=== PATIENT | male | born 1965 | race Caucasian/White ===

== ENCOUNTER 2019-11-01 08:32 | Outpatient (CLI) | payer OTHER, SELFPAY ==
--- NOTE | 2019-11-01 08:39 | XR_ITS ---
WS: [id number] KNEE RIGHT TECHNIQUE: 3 views of the right knee CLINICAL INFORMATION: RT KNEE PAIN COMPARISON: None. FINDINGS: Right knee is normal in appearance. No evidence of acute fracture dislocation. Small effusion. Patell a is normal. XR/XR knee RT 3V* [id number] IMPRESSION: Small suprapatellar effusion. No acute fractures.
== END 2019-11-01 08:33 | disposition home or self-care (01) ==
PROVIDERS: Family Provider Family Medicine; PCP Family Medicine; Visit Provider Family Medicine
DX: M25.461 Effusion, right knee (principal); M25.561 Pain in right knee
CPT/HCPCS: 73562

== ENCOUNTER 2019-11-19 08:56 | Outpatient (CLI) | payer OTHER, SELFPAY ==
--- NOTE | 2019-11-19 09:09 | MR_ITS ---
WS: [id number] MRI RIGHT KNEE HISTORY: KNEE PAIN, RIGHT COMPARISON: RIGHT knee radiograph 11/01/2019 Anterior cruciate ligament: Intact. Posterior cruciate ligament: Intact. Medial collateral ligament: Intact. Posterior lateral corner structures: Intact. Medial menisci: Abnormal shape and contour and signal in the posterior horn towards the meniscal root . Increased signal along the superior articular surface. Seen best on the axial imaging is a tear tow ards the meniscal root. Anterior horn is normal. Lateral meniscus: Intact. Normal signal, size and shape. Extensor mechanism: Distal quadriceps tendon and patellar tendons are intact. Fluid and soft tissue: Moderate-sized suprapatellar joint effusion. No Nur's cyst. Osseous and articular structures: Patellofemoral compartment: Normal. Medial compartment: Very mild fissuring and thinning of the cartilage in the medial compartment. Larg est fissures and defects involving the femoral condyle towards the intercondylar notch where the meni scal tear is evident. Mild narrowing of the joint space. Lateral compartment: MR/MR knee RT wo con* [id number] IMPRESSION: 1. Irregular tear involving the posterior horn medial meniscus towards the men iscal root. 2. Mild joint space narrowing medial compartment with fissuring and thinning o f the cartilage. 3. Moderate-sized suprapatellar joint effusion.
== END 2019-11-19 08:57 | disposition home or self-care (01) ==
LOC: RADWPI 09:03
PROVIDERS: Family Provider Family Medicine; PCP Family Medicine; Visit Provider Family Medicine
DX: M25.561 Pain in right knee (principal); M25.461 Effusion, right knee
CPT/HCPCS: 73721

== ENCOUNTER → 2020-09-01 12:49 | Outpatient (BNVA) | payer OTHER, SELFPAY | PROVIDERS: Family Provider Family Medicine; PCP Family Medicine; Visit Provider Nurse Practitioner Family | DX: Z20.828 Contact with and (suspected) exposure to other viral communicable diseases (principal) | CPT/HCPCS: 87635 ==

== ENCOUNTER 2020-09-05 08:00 | Outpatient (CLI) | payer OTHER, SELFPAY ==
[2020-09-05 08:06] VITALS: BP 150/98; PULSE 60; RESP 17; TEMP 36.6; O2SAT 98; BMI 39.5
--- NOTE | 2020-09-05 08:17 | AMB.MCA ---
Patient Information Referred by: John Symptom onset date: 08/27/20 COVID 19 common symptoms: positive cough, non-productive cough, fatigue and body aches COVID 19 other sytmptoms: negative chest pressure, chest pain, pleuritic pain, requiring oxygen or requiring more oxygen Severity: mild OZH COVID test results: SARS-CoV-2 RNA (RT-PCR) Detected (NOT DETECTED) A 09/01/20 12:49 09/01/20 Criteria/Plan Inclusion/Exclusion Criteria weight >/= 40kg, + direct test </= 10 days ago and symptom onset </= 10 days ago BMI >/= 35 not requiring hospitalization Patient education patient/caregiver received/reviewed fact sheet, Emergency Use Authorization/unapproved drug status discussed with patient/caregiver, alternatives to this treatment discussed with patient/caregiver, risks and benefits of medication reviewed with patient/caregiver, patient/caregiver given opportunity for questions, which were answered and patient/caregiver consents to receiving Monoclonal Antibody Treatment Plan for treatment Meets criteria for Monoclonal Antibody infusion Ordering Monoclonal Antibody infusion for today
[2020-09-05 08:24] VITALS: BP 158/101; PULSE 78; RESP 19; TEMP 36.6; O2SAT 98
[2020-09-05 09:07] VITALS: BP 124/86; PULSE 67; RESP 18; TEMP 36.6; O2SAT 96
[2020-09-05 09:19] VITALS: BP 130/85; PULSE 67; RESP 17; TEMP 36.6; O2SAT 97
[2020-09-05 10:39] VITALS: BP 150/98; PULSE 60; RESP 17; TEMP 36.6; O2SAT 98
--- NOTE | 2020-09-05 10:50 | PC.NURSE ---
Discharge note Patient monitored post infusion with no side effects noted. IV removed with catheter intact. Pressure dressing applied. Patient left with nurse tech to private vehicle.
--- NOTE | 2020-09-11 15:13 | DCPLANNER ---
Addendum entered by Licha Mccauley 09/16/20 15:18: commercial construction project manager called to check on patient after receiving the BAM infusion. Patient stated that he was doing better, still not at 100%, he stills gets winded very easy, he is getting around good, does not have a headache. Patient has not been admitted to the hospital. Original Note: commercial construction project manager had message that patient received the BAM infusion. commercial construction project manager called to check on patient after receiving the infusion. Patient stated that he is feeling a lot better. Before the infusion he had a lot of sinus pressure, headache, lost of taste and smell, no fever, burning in his chest. After the infusion he states that he is feeling a lot better, no headache, shortness of breath is better, still gets headaches but nothing like before,still has sinus pressure. Patient stated that he does not have his sense of taste or smell.
== END 2020-09-05 10:45 | disposition home or self-care (01) ==
PROVIDERS: Family Provider Family Medicine; PCP Family Medicine; Visit Provider Nurse Practitioner Family
DX: U07.1 COVID-19 (principal)
CPT/HCPCS: 96365; J7050

== ENCOUNTER → 2021-12-02 09:44 | Outpatient (BNVA) | payer MEDICAID, SELFPAY | PROVIDERS: Family Provider Family Medicine; PCP Family Medicine; Referring Provider Family Medicine; Visit Provider Surgery | DX: Z86.010 Personal history of colon polyps (principal); F17.210 Nicotine dependence, cigarettes, uncomplicated | CPT/HCPCS: 99203 ==

== ENCOUNTER 2022-01-28 09:10 | Day surgery (SDC) | payer MEDICAID, SELFPAY ==
[2022-01-26 09:50] VITALS: BMI 38.0
[2022-01-28 09:30] VITALS: BP 136/88; PULSE 50; RESP 18; TEMP 36.2; O2SAT 97
[2022-01-28] MEDS: sodium chloride 0.9% 1,000 ML 30 ML IV (09:38)
--- NOTE | 2022-01-28 10:53 | W.PM.OPSFHP ---
Same Day Surgery H&P Indication for Procedure/HPI DATE OF PROCEDURE: January 28, 2022 CHIEF COMPLAINT/INDICATIONFOR SURGICAL PROCEDURE: Colon polyps PREOP DIAGNOSIS: History of colon polyps PLANNED PROCEDURE: Operation Date: 01/28/22 10:30 Proposed Procedures p Colonoscopy 11032/z86.010(Not Applicable) - Gustavo Mckenzie MD 12/02/2021 This is a pleasant 56 years old gentleman with history of colon polyps before 5 years, patient reports any nausea vomiting fevers or chills or bleeding per rectum, is referred to my practice for surveillance colonoscopy and also denies history of colon cancer. 01/28/2022 Patient comes today for surveillance colonoscopy ROS All systems have been reviewed negative except as for the above or per problem list. Medications/Allergies* Home Medications Medication Instructions Recorded Confirmed Type amlodipine 10 mg tablet 10 mg PO DAILY 09/01/20 01/26/22 History losartan 25 mg tablet 25 mg PO DAILY 09/01/20 01/26/22 History omeprazole 20 mg capsule,delayed 20 mg PO DAILY 12/02/21 01/26/22 History release Allergies/Adverse Reactions Allergy/AdvReac Type Severity Reaction Status Date / Time No Known Allergies Allergy Verified 01/28/22 10:53 Current Medications: Generic Name Dose Route Start Last Admin Trade Name Freq PRN Reason Stop Dose Admin Sodium Chloride 1,000 mls @ 30 mls/hr 01/28/22 09:30 01/28/22 09:38 Sodium Chloride 0.9% IV 01/29/22 09:29 30 mls/hr .Q24H ARGELIA Administration Pertinent History/Comorbid Conditions* Medical History (Updated 12/04/21 @ 17:29 by Gustavo Mckenzie MD) Accelerated essential hypertension Social History Smoking and tobacco status: current some day smoker Pertinent Exam Findings alert, oriented x 3, regular rate & rhythm and procedure specific exam findings (Abdominal examination nontender nondistended soft) Recommendations Surgery/Procedure today (Surveillance colonoscopy) Coding Level of Care Code Acute Simulation Developer for Lainey Baptiste
--- NOTE | 2022-01-28 11:00 | ANES.PREANE2 ---
Pre-Anesthetic Assessment Height/Weight: Height 1.73 m Weight 113.398 kg Temp Pulse Resp BP Pulse Ox 97.2 F L 50 L 18 136/88 97 01/28/22 09:30 01/28/22 09:30 01/28/22 09:30 01/28/22 09:30 01/28/22 09:30 Preop Diagnosis: History of colon polyps Operation Date: 01/28/22 10:30 Proposed Procedures p Colonoscopy 77364/z86.010(Not Applicable) - Gustavo Mckenzie MD Familial anesthetic complications: None Was Beta Dante taken within 24 hours: N/A Was Clonidine taken within 24 hours: N/A Last intake: Intake Last Liquid Date 01/27/22 Last Liquid Time 21:00 Last Solid Date 01/26/22 Last Solid Time 20:30 Social Tobacco and No alcohol Exam alert, oriented x 3 and regular rate & rhythm Airway Submandibular: within normal limits Cervical ROM: within normal limits Mallampati: Class II Dentition: full Pulmonary Chronic Obstructive Pulmonary Disease CV/HEM Hypertension GI Gastroesophageal Reflux Disease Metabolic Morbid Obesity Anesthetic Plan ASA status: 2 Anesthesia: MAC Medications/Allergies Home Medications Medication Instructions Recorded Confirmed Last Taken Type amlodipine 10 mg tablet 10 mg PO DAILY 09/01/20 01/26/22 01/26/22 History losartan 25 mg tablet 25 mg PO DAILY 09/01/20 01/26/22 01/26/22 History omeprazole 20 mg capsule,delayed 20 mg PO DAILY 12/02/21 01/26/22 01/26/22 History release Allergies Allergy/AdvReac Type Severity Reaction Status Date / Time No Known Allergies Allergy Verified 01/28/22 10:53 Current Medications Generic Name Dose Route Start Last Admin Trade Name Freq PRN Reason Stop Dose Admin Sodium Chloride 1,000 mls @ 30 mls/hr 01/28/22 09:30 01/28/22 09:38 Sodium Chloride 0.9% IV 01/29/22 09:29 30 mls/hr .Q24H ARGELIA Administration PFSH Anesthesia Medical History Accelerated essential hypertension Social History Smoking and tobacco status: current some day smoker Data Anesthesia Cardiac Studies: No Data to Display
[2022-01-28 11:18] VITALS: BP 134/91; PULSE 68; RESP 16; TEMP 36.1; O2SAT 94
[2022-01-28 11:31] VITALS: BP 136/89; PULSE 63; RESP 17; O2SAT 95
[2022-01-28 11:40] VITALS: BP 122/85; PULSE 53; RESP 16; O2SAT 95
--- NOTE | 2022-01-28 12:16 | ANE.PACU2 ---
Inpatient post-anesthesia follow up: Airway intact: Yes Vital signs: Temperature 97 F Pulse Rate 53 Respiratory Rate 16 Blood Pressure 122/85 Pulse Oximetry 95 Oxygen Delivery Me thod Room Air Oxygen Flow Rate 4 Fraction of Inspir ed Oxygen Hydration adequate: Yes Nausea and vomiting: No Pain level: 1 Mental status: Baseline
== END 2022-01-28 11:58 | disposition home or self-care (01) ==
PROVIDERS: Family Provider Family Medicine; PCP Family Medicine; Visit Provider Surgery
PROC: 0DJD8ZZ Inspection of Lower Intestinal Tract, Via Natural or Artificial Opening Endoscopic (ICD-10-PCS; CPT 45378; principal; 2022-01-28 10:30)
DX: Z12.11 Encounter for screening for malignant neoplasm of colon (principal); Z86.010 Personal history of colon polyps; F17.200 Nicotine dependence, unspecified, uncomplicated; J44.9 Chronic obstructive pulmonary disease, unspecified; I10 Essential (primary) hypertension; K21.9 Gastro-esophageal reflux disease without esophagitis; E66.01 Morbid (severe) obesity due to excess calories; Z68.38 Body mass index [BMI] 38.0-38.9, adult
CPT/HCPCS: 45378; J2704; J7030

== ENCOUNTER → 2022-02-17 09:25 | Outpatient (BNVA) | payer MEDICAID, SELFPAY | PROVIDERS: Family Provider Family Medicine; PCP Family Medicine; Visit Provider Surgery | DX: Z09 Encounter for follow-up examination after completed treatment for conditions other than malignant neoplasm (principal); K57.31 Diverticulosis of large intestine without perforation or abscess with bleeding; K42.9 Umbilical hernia without obstruction or gangrene | CPT/HCPCS: 99213 ==

== ENCOUNTER → 2023-02-04 09:05 | Outpatient (BNVA) | payer MEDICAID, SELFPAY | PROVIDERS: Family Provider Family Medicine; PCP Family Medicine; Visit Provider Clinical Nurse Specialist Adult Health | DX: K57.32 Diverticulitis of large intestine without perforation or abscess without bleeding (principal) | CPT/HCPCS: 80053; 85025; 85651; 86140 ==

== ENCOUNTER 2023-02-26 14:32 | Emergency (ER) | payer MEDICAID, SELFPAY ==
[2023-02-26 14:46] VITALS: BP 168/112; PULSE 89; RESP 16; TEMP 36.7; O2SAT 95; BMI 36.5
--- NOTE | 2023-02-26 14:48 | W.ED.SOB ---
HPI - SOB/Dyspnea General: Chief Complaint: Shortness of Breath/Dyspnea Stated Complaint: cough 2xweeks Time Seen by Provider: 02/26/23 14:46 Source: patient Mode of arrival: ambulatory History of Present Illness: HPI Narrative: 57-year-old male presents emergency room with complaint of persistent cough for the last 2 weeks cough nonproductive. No vomiting no diarrhea no orthopnea no chest pain. He has had some nausea with the coughing fits. He recently finished Zithromax did not seem to help. No history of any arrhythmias or congestive heart failure. Patient is a former smoker. MD elicited complaint: cough Onset (ago): week(s) (2) Timing: constant Severity: mild Exacerbating factors: nothing Relieving factors: nothing Associated symptoms: Deny abdominal pain, chest congestion, chest pain, cough, diaphoresis, dizziness, extremity pain, fever(s), hemoptysis, lightheadedness, myalgias, nausea, orthopnea, palpitations, paresthesias, polydipsia, polyuria, rash, sense of impending doom, syncope or vomiting Treatment prior to arrival: none Review of Systems Const: Denies: fever(s) or diaphoresis ENMT: Denies: throat pain, ear or mastoid pain, nasal discharge or nasal congestion Card: Denies: chest pain, palpitations, lightheadedness, syncope or orthopnea Resp: Reports: dyspnea, non-productive cough and wheezing; Denies: hemoptysis or chest congestion GI: Denies: abdominal pain, nausea or vomiting : Denies: flank pain, dysuria, urinary frequency or urinary urgency Musc: Denies: extremity pain Skin/Breast: Denies: rash or pruritus Neuro: Denies: dizziness Endo: Denies: polyuria or polydipsia PFS ED PFSH: Medical History Accelerated essential hypertension History of diverticulitis Surgical History History of colonoscopy History of hernia repair Family History Other CAD (coronary artery disease) Cancer Diabetes Hypertension Social History Smoking and tobacco status: current some day smoker Physical Exam Const: GENERAL APPEARANCE: cooperative and comfortable ORIENTATION/CONSCIOUSNESS: Yes awake, Yes oriented to person, Yes oriented to place and Yes oriented to time HENMT: COMMON NORMALS: normocephalic, atraumatic and hearing grossly normal bilaterally HEAD & SCALP: normocephalic and atraumatic Resp: AUSCULTATION: rhonchi and wheezes Cardio: COMMON NORMALS: regular rate, regular rhythm and No murmurs present (Cardio) RATE: regular rate RHYTHM: regular rhythm GI: COMMON NORMALS: Soft to palpation and No hepatosplenomegaly present AUSCULTATION: Yes normoactive bowel sounds PALPATION: Yes Soft to palpation, No Tenderness to palpation present (GI), No Guarding due to palpation present (GI) and Yes No hepatosplenomegaly present Extremity: COMMON NORMALS: normal to inspection, capillary refill normal, no clubbing, cyanosis or edema, no calf tenderness and no pedal edema Neuro: SENSORIUM/ORIENTATION: Yes oriented to person, Yes oriented to place and Yes oriented to time Skin: COMMON NORMALS: no rashes or lesions noted GENERAL SKIN EXAM: no rashes or lesions noted Course Vital Signs: Vital signs: Vital Signs Temperature 98.0 F 02/26/23 14:46 Pulse Rate 85 02/26/23 16:43 Respiratory Rate 17 02/26/23 15:25 Blood Pressure 129/68 02/26/23 16:43 Pulse Oximetry 97 02/26/23 16:43 Oxygen Delivery Me thod Room Air 02/26/23 16:00 MDM - SOB/Dyspnea Medical Decision Making COPD with acute exacerbation chest x-ray is clear started on a steroid taper Symbicort continue albuterol as needed follow-up with his primary care doctor next week avoid tobacco smoke exposure and other allergen exposure as well as heat and humidity. Return if is further problems. Medical Records I reviewed the patient's medical records. Lab Data I reviewed the patient's lab results. 02/26/23 15:00 Labs/Radiology: Radiology Impressions Chest X-Ray 02/26/23 14:50 IMPRESSION: No acute findings. Laboratory Results WBC 8.8 10^3/uL (4.0-10.0) 02/26/23 15:00 RBC 5.57 10^6/uL (4.1-5.3) H 02/26/23 15:00 Hgb 15.5 g/dL (11.7-16.6) 02/26/23 15:00 Hct 46.7 % (42.0-52.0) 02/26/23 15:00 MCV 83.8 fl (80-94) 02/26/23 15:00 MCH 27.8 pg (28.0-34.0) L 02/26/23 15:00 MCHC 33.2 g/dL (30.0-36.0) 02/26/23 15:00 RDW 13.3 % (12.1-15.1) 02/26/23 15:00 Plt Count 273 10^3/cmm (130-400) 02/26/23 15:00 MPV 9.4 fL (7.4-10.4) 02/26/23 15:00 Neut % (Auto) 50.9 % 02/26/23 15:00 Lymph % (Auto) 25.8 % 02/26/23 15:00 [place] % (Auto) 7.5 % 02/26/23 15:00 Eos % (Auto) 13.5 % 02/26/23 15:00 Baso % (Auto) 1.8 % 02/26/23 15:00 Neut # (Auto) 4.49 10^3/uL (1.8-7.7) 02/26/23 15:00 Lymph # (Auto) 2.3 10^3/uL (0.8-4.8) 02/26/23 15:00 [place] # (Auto) 0.7 10^3/uL (0.2-0.9) 02/26/23 15:00 Eos # (Auto) 1.2 10^3/uL (0.0-0.8) H 02/26/23 15:00 Baso # (Auto) 0.2 10^3/uL (0.0-0.1) H 02/26/23 15:00 Nucleated RBC % (auto) 0 % 02/26/23 15:00 Nucleated RBCs # 0.0 /100WBC 02/26/23 15:00 Discharge Plan Discharge Patient Disposition: Home Clinical Impression: Acute exacerbation of chronic obstructive airways disease Condition: Stable Prescriptions: New prednisone 20 mg tablet 20 mg PO TID Qty: 15 0RF Rx Instructions: 1 p.o. 3 times daily x3 days, 1 p.o. twice daily x2 days, 1 p.o. daily x2 days albuterol sulfate 90 mcg/actuation HFA aerosol inhaler 2 inh INHALATION Q4H PRN (Reason: shortness of breath or wheezing) Qty: 18 0RF Symbicort 80-4.5 mcg/actuation HFA aerosol inhaler 2 puff inhalation BID Qty: 10.2 0RF No Action omeprazole 20 mg capsule,delayed release(DR/EC) 20 mg PO DAILY azithromycin 250 mg tablet See Rx Instructions PO .COMPLEX Qty: 6 0RF Rx Instructions: For 250 mg dose pack: take 500 mg today (day 1), then 250 mg for 4 days (days 2-5) PO benzonatate 100 mg capsule 100 mg PO TID PRN (Reason: cough) Qty: 45 0RF albuterol sulfate [ProAir HFA] 90 mcg/actuation HFA aerosol inhaler 2 puff inhalation Q6H PRN (Reason: shortness of breath or wheezing) Qty: 8.5 6RF amlodipine 10 mg tablet 10 mg PO DAILY Qty: 90 3RF losartan 50 mg tablet 50 mg PO DAILY Qty: 90 3RF Discharge Orders: Discharge ED (Routine); Ordered 02/26/23 Ordered By: Chalo Gonzalez Referrals: Luís eHrnandez MD [Primary Care Provider] - Patient Instructions: COPD (Chronic Obstructive Pulmonary Disease) (ED), Opioid Safety, Pain Management Activity Restrictions/Additional Instructions: Follow-up with your doctor within the next week Coding Level of Care Code ED [employer] for Lainey Baptiste
--- NOTE | 2023-02-26 14:50 | ECG_ITS ---
[facility] Test Date: 2023-02-26 Pat Name: Serafin Martinez Department: Room: Gender: Male Sole Stainer: : 1965 Requested By: Chalo Hoyos Order Number: [id number] Kristal MD: Noah Castrejon M.D. Measurements Intervals Adrian Rate: 79 P: 44 UT: 157 QRS: 19 QRSD: 96 T: 65 QT: 367 QTc: 421 Interpretive Statements SINUS RHYTHM INDETERMINATE AXIS No previous ECG available for comparison Electronically Signed On 02-26-2023 15:56:09 CDT by Noah Castrejon M.D. [email or web address]
--- NOTE | 2023-02-26 14:50 | XRR_ITS ---
PROCEDURE INFORMATION: Exam: XR Chest Exam date and time: 02/26/2023 2:58 PM Age: 57 years old Clinical indication: Cough and dyspnea; Additional info: Dyspnea/cough TECHNIQUE: Imaging protocol: Radiologic exam of the chest. Views: 1 view. COMPARISON: CT abdomen pelvis w con* [id number] 08/20/2016 9:15 PM FINDINGS: Lungs: Unremarkable. No consolidation. Pleural spaces: Unremarkable. No pleural effusion. No pneumothorax. Heart/Mediastinum: Unremarkable. No cardiomegaly. Bones/joints: Unremarkable. XR/XR chest 1V portable [id number] IMPRESSION: No acute findings.
[2023-02-26 15:14] LABS: Basophils # 0.2 10^3/uL (0.0-0.1); Basophils % 1.8 %; Eosinophils # 1.2 10^3/uL (0.0-0.8); Eosinophils % 13.5 %; Hematocrit 46.7 % (42.0-52.0); Hemoglobin 15.5 g/dL (11.7-16.6); Lymphocytes # 2.3 10^3/uL (0.8-4.8); Lymphocytes % 25.8 %; Mean Corpuscular HGB Conc 33.2 g/dL (30.0-36.0); Mean Corpuscular Hemoglobin 27.8 pg (28.0-34.0); Mean Corpuscular Volume 83.8 fl (80-94); Mean Platelet Volume 9.4 fL (7.4-10.4); Monocytes # 0.7 10^3/uL (0.2-0.9); Monocytes % 7.5 %; Neutrophils # 4.49 10^3/uL (1.8-7.7); Neutrophils % 50.9 %; Nucleated Red Blood Cells % 0 %; Platelet Count 273 10^3/cmm (130-400); Red Blood Count 5.57 10^6/uL (4.1-5.3); Red Cell Distribution Width 13.3 % (12.1-15.1); White Blood Count 8.8 10^3/uL (4.0-10.0)
[2023-02-26] MEDS: dexamethasone 10 mg/mL INJ IVP (15:15)
[2023-02-26 15:20] VITALS: BP 133/83; PULSE 77; O2SAT 94
[2023-02-26] MEDS: ipratropium-albuterol 3 mL Neb INHALATION (15:22)
[2023-02-26 15:25] VITALS: PULSE 81; RESP 17; O2SAT 94
[2023-02-26 16:00] VITALS: BP 122/65; PULSE 84; O2SAT 98
[2023-02-26 16:43] VITALS: BP 129/68; PULSE 85; O2SAT 97
== END 2023-02-26 16:44 | disposition home or self-care (01) ==
PROVIDERS: Emergency Provider Family Medicine; PCP Family Medicine
DX: J44.1 Chronic obstructive pulmonary disease with (acute) exacerbation (principal)
CPT/HCPCS: 36415; 71045; 85025; 93005; 94640; 96374; 99285; J1100

== ENCOUNTER → 2023-05-12 09:53 | Outpatient (BNVA) | payer MEDICAID, SELFPAY | PROVIDERS: PCP Family Medicine; Visit Provider Internal Medicine Pulmonary Disease | DX: J30.2 Other seasonal allergic rhinitis (principal); R06.02 Shortness of breath; Z87.891 Personal history of nicotine dependence | CPT/HCPCS: 82785; 86003 ==

== ENCOUNTER 2023-05-26 07:49 | Outpatient (CLI) | payer MEDICAID, SELFPAY ==
[2023-05-26] MEDS: albuterol 2.5 mg/3 mL Neb INHALATION (08:20)
[2023-05-26 15:12] VITALS: BP 126/75
== END 2023-05-26 07:50 | disposition home or self-care (01) ==
LOC: RT 07:50
PROVIDERS: PCP Family Medicine; Visit Provider Internal Medicine Pulmonary Disease
DX: R06.02 Shortness of breath (principal)
CPT/HCPCS: 82785; 86003; 94060; 94618; 94726; 94729; J7613

== ENCOUNTER 2023-06-02 10:44 | Outpatient (CLI) | payer MEDICAID, SELFPAY ==
--- NOTE | 2023-06-02 11:00 | CT_ITS ---
WS: [id number] LDCT LUNG CANCER SCREENING TECHNIQUE: Noncontrast CT of the chest with coronal and sagittal reformatted images. CLINICAL INFORMATION: Cancer Screen COMPARISON: None. DLP: 163.19 mGy.cm DIvol: Mean CTDIvol: 3.70 (mGy) All CT scans at [facility] use at least one of these dose optimization techniques: automat ed exposure control; mA and/or kV adjustment per patient size (includes targeted exams where dose is matched to clinical indication); or iterative reconstruction. FINDINGS: 5 mm noncalcified nodule along the fissure. Normal caliber thoracic aorta. No mediastinal or hilar lymphadenopathy. Calcified anterior mediastina l lymph nodes. No axillary lymphadenopathy. Adrenal glands are normal. Normal GE junction. Few calcified granulomas. IMPRESSION: CT/CT lung screening [id number] LUNG-RADS: 2-Benign Appearance or Behavior FOLLOW UP: 12 Month: Continue annual screening with LDCT
== END 2023-06-02 10:45 | disposition home or self-care (01) ==
PROVIDERS: PCP Family Medicine; Visit Provider Internal Medicine Pulmonary Disease
DX: Z87.891 Personal history of nicotine dependence (principal); Z12.2 Encounter for screening for malignant neoplasm of respiratory organs
CPT/HCPCS: 71271

== ENCOUNTER → 2024-04-09 15:38 | Outpatient (BNVA) | payer OTHER, SELFPAY | PROVIDERS: PCP Family Medicine; Visit Provider Family Medicine | DX: Z51.81 Encounter for therapeutic drug level monitoring (principal); Z13.220 Encounter for screening for lipoid disorders; R73.09 Other abnormal glucose | CPT/HCPCS: 80053; 80061; 83036; 85025 ==

== ENCOUNTER → 2024-07-04 11:52 | Outpatient (BNVA) | payer OTHER, SELFPAY | PROVIDERS: PCP Family Medicine; Visit Provider Family Medicine | DX: E11.9 Type 2 diabetes mellitus without complications (principal) | CPT/HCPCS: 83036 ==

== ENCOUNTER → 2025-04-26 12:46 | Outpatient (BNVA) | payer OTHER, SELFPAY | PROVIDERS: PCP Family Medicine; Visit Provider Family Medicine | DX: E11.9 Type 2 diabetes mellitus without complications (principal); Z51.81 Encounter for therapeutic drug level monitoring | CPT/HCPCS: 80053; 83036; 85025 ==